=== PATIENT | male | born 1970 | race Caucasian/White ===

== ENCOUNTER 2019-03-14 07:41 | Day surgery (SDC) | payer BC ==
--- NOTE | 2019-03-07 14:38 | EKG ---
Test Date: 2019-03-07 Test Time: 14:33:07 Reversal Print Inspector: JOE MEASUREMENT RESULTS: Intervals: Rate: 57 NC: 138 QRSD: 86 QT: 408 QTc: 397 [place]: P: 58 NC: 138 QRS: -25 T: 47 INTERPRETIVE STATEMENTS: Sinus bradycardia Otherwise normal ECG Compared to ECG 01/02/2016 08:21:57 Sinus rhythm no longer present Electronically Signed On 03-07-19 14:38:12 [employer] by Indra Lieberman
[2019-03-07 15:09] LABS: Absolute Lymphocytes (CBC) 1.3 K/uL (0.7-4.9); Lymphocytes % 27.9 % (15.3-44.8); MPV 8.5 fL (7.6-11.3); RBC Red Blood Cell Count 4.83 M/uL (4.33-5.43)
[2019-03-07 15:13] LABS: Protime INR 1.05
[2019-03-07 15:30] LABS: BUN Blood Urea Nitrogen 12 mg/dL (7-18); Bicarbonate 32 mmol/L (21-32); Glucose Level 95 mg/dL (74-106); Potassium 3.8 mmol/L (3.5-5.1); Sodium Level 142 mmol/L (136-145)
--- OUTSIDE RECORDS SUMMARY | 2019-03-14 07:43 | XMS REPORT ---
:1970 Author Organization eClinicalWorks Care Team Providers Name Role Phone Tyshawn Gerber Provider Role Unavailable Allergies, Adverse Reactions, Alerts Substance Reaction Event Type N.K.D.A. 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 Problem Overweight (BMI 25.0-29.9) E66.3 Active Problem Right knee injury S89.91XA Active Problem Benign essential HTN I10 Active Problem Palpitation R00.2 Active Medications Medication Code Code Instructions Start End Status Dosage System Date Date Lisinopril [facility] 81528721350 10 MG Orally Active 1 tablet Once a day Nasonex ND 31146884351 50 MCG/ACT Active 2 sprays in Nasally Once a each nostril day Triamcinolone ND 26209474986 0.1 % June 29, Active 1 application Acetonide Externally 2019 to affected Twice a day area Claritin ND 12115845181 10 MG Orally Active 1 tablet Once a day Results No Known Results Summary Purpose eClinicalWorks Submission
--- OUTSIDE RECORDS SUMMARY | 2019-03-14 07:44 | XMS REPORT ---
:1970 Author Organization [employer] Care Team Providers Name Role Phone Tyshawn Gerber Provider Role Unavailable Allergies, Adverse Reactions, Alerts Substance Reaction Event Type N.K.D.A. 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 Problem Overweight (BMI 25.0-29.9) E66.3 Active Problem Right knee injury S89.91XA Active Problem Benign essential HTN I10 Active Problem Palpitation R00.2 Active Medications Medication Code Code Instructions Start End Status Dosage System Date Date Triamcinolone [facility] 58291169269 0.1 % June 29, Active 1 application Acetonide Externally 2019 to affected Twice a day area Lisinopril ND 57683757968 10 MG Orally Active 1 tablet Once a day Nasonex ND 37139867635 50 MCG/ACT Active 2 sprays in Nasally Once a each nostril day Claritin [facility] 74725072858 10 MG Orally Active 1 tablet Once a day Results No Known Results Summary Purpose eClinicalWorks Submission
--- OUTSIDE RECORDS SUMMARY | 2019-03-14 07:44 | XMS REPORT ---
:1970 Author Organization [employer]Works Care Team Providers Name Role Phone Efrain Vera Provider Role Unavailable Allergies, Adverse Reactions, Alerts Substance Reaction Event Type N.K.D.A. 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 Problem Overweight (BMI 25.0-29.9) E66.3 Active Problem Right knee injury S89.91XA Active Problem Benign essential HTN I10 Active Problem Palpitation R00.2 Active Medications Medication Code Code Instructions Start End Status Dosage System Date Date Triamcinolone ND 90893341262 0.1 % June 29, Active 1 application Acetonide Externally 2019 to affected Twice a day area Claritin [facility] 38338579817 10 MG Orally Active 1 tablet Once a day Lisinopril ND 55665739770 10 MG Orally Active 1 tablet Once a day Nasonex ND 05772700877 50 MCG/ACT Active 2 sprays in Nasally Once a each nostril day Results No Known Results Summary Purpose eClinicalWorks Submission
--- OUTSIDE RECORDS SUMMARY | 2019-03-14 07:44 | XMS REPORT ---
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
--- OUTSIDE RECORDS SUMMARY | 2019-03-14 07:44 | XMS REPORT ---
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 Problem Overweight (BMI 25.0-29.9) E66.3 Active Problem Right knee injury S89.91XA Active Problem Benign essential HTN I10 Active Problem Palpitation R00.2 Active Medications Medication Code Code Instructions Start End Status Dosage System Date Date Claritin [facility] [place] 41343303772 10 MG Orally Active 1 tablet Once a day Triamcinolone ND 73065023464 0.1 % June 29, Active 1 application Acetonide Externally 2019 to affected Twice a day area Nasonex ND 83434673192 50 MCG/ACT Active 2 sprays in Nasally Once a each nostril day Lisinopril ND 94777046316 10 MG Orally Active 1 tablet Once a day Results No Known Results Summary Purpose eClinicalWorks Submission
--- OUTSIDE RECORDS SUMMARY | 2019-03-14 07:44 | XMS REPORT ---
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
[2019-03-14] MEDS ORDERED: Ringers Lactate 1,000 ML IV ONE (08:01)
[2019-03-14] MEDS ORDERED: CEFAZOLIN/SWI 1gm 1 GM/10 ML SYR ONE (08:02)
[2019-03-14] MEDS ORDERED: MIDAZOLAM HCL 2 MG/2 ML INJ ONE ×2 (09:56→10:18)
[2019-03-14] MEDS ORDERED: FENTANYL CITR 100 MCG/2 ML ONE ×2 (10:18→12:29)
[2019-03-14] MEDS ORDERED: propofoL 200 MG/20 ML VIAL IV ONE (10:18)
[2019-03-14] MEDS ORDERED: LIDOCAINE 1% MPF 5 ML VIAL ONE (10:18)
[2019-03-14] MEDS ORDERED: BUPIVACA 0.5%/EPI 0.0005%/PF 30 ML VIAL ONE (11:06)
[2019-03-14] MEDS ORDERED: KETOROLAC 30 MG/ML INJ ONE (11:35)
[2019-03-14] MEDS ORDERED: ONDANSETRON 4 MG/2 ML VIAL ONE (12:11)
--- NOTE | 2019-03-14 12:59 | RAD REPORT ---
EXAM DESCRIPTION: RAD - Elbow Right 3 View - 03/14/2019 12:49 pm CLINICAL HISTORY: Elbow surgery FINDINGS: Eight intraoperative fluoroscopic spot images obtained Fluoroscopy time 0.5 minutes Postsurgical changes of a tendon repair Surgery performed by Dr. Gerber
--- NOTE | 2019-03-14 13:05 | P.BOP ---
Preoperative diagnosis: right partial distal biceps tear Postoperative diagnosis: same Primary procedure: right distal biceps tendon repair Transmitter Operator: NONE,NONE Estimated blood loss: 10 cc Specimen: none Findings: see dictation Anesthesia: General Complications: None Implants: Arthrex distal biceps button Fluids & blood products: per anesthesia Transferred to: Recovery Room Condition: Good
[2019-03-14 13:24] VITALS: O2SAT 100
--- NOTE | 2019-03-14 13:43 | RAD REPORT ---
EXAM DESCRIPTION: RAD - Elbow Right 2 View - 03/14/2019 1:34 pm CLINICAL HISTORY: post-op Right elbow pain COMPARISON: Elbow Right 3 View dated 03/14/2019; Elbow Right Wo Cont dated 11/16/2018 FINDINGS: Small clip is seen in the region of the radial tuberosity. Small osteophytes are present i nvolving the radial and olecranon. Mild soft tissue swelling is evident.
[2019-03-14] MEDS ORDERED: HYDROCODONE/APAP 5/325 MG TAB ONE (14:04)
[2019-03-14 14:48] VITALS: TEMP 96.6
[2019-03-14 14:51] VITALS: BP 126/76
--- NOTE | 2019-03-15 08:16 | OP ---
Date of Procedure: 03/14/2019 Surgeon: Tyshawn Gerber MD Preoperative Diagnosis: Right partial distal biceps tear. Postoperative Diagnosis: Right partial distal biceps tear. Procedure Performed: Right elbow distal biceps repair. Anesthesia: General LMA. Fluids: Per Anesthesia record. Estimated Blood Loss: 10 mL. Implants: Arthrex distal biceps tendon button. Complications: None. Indication For Procedure: Dameon is a 49-year-old male who presented to my clinic yesterday with an injury to his right elbow. He injured his right elbow and had some tenderness of his distal biceps tendon and MRI demonstrated a near complete distal biceps tear of over 70%. He had a trial of nonoperative treatment and therapy, but the patient failed and reported continued pain and difficulty with ADLs. I discussed with the patient at length risks and benefits associated with operative and nonoperative treatment, he expressed understanding and elected to proceed with the operative treatment. Description Of Procedure: After informed consent was obtained, the patient was identified in the preop holding. The right upper extremity was marked. The patient was then taken back to operating room, transferred to the operating table in the supine fashion, placed under general LMA anesthesia. The right upper extremity was then prepped and draped in usual sterile fashion. A time- out was initiated and correct patient and procedure were confirmed and identified. The patient had received his preoperative prophylactic antibiotics. Approximately, an 8 cm longitudinal incision was made over the proximal forearm in line with the bicipital tuberosity as well as proximal radius. Dissection was taken down through the brachioradialis and pronator interval interval. The brachial cutaneous nerves were protected at all times when dissection was taken down to the distal biceps tendon insertion. Any crossing veins were tied off using silk ties. The distal biceps tendon was noted to be abnormal, hypertrophic and partially torn insertion of the bicipital tuberosity. The remainder of the tendon was released off the bicipital tuberosity using Metzenbaum. The unhealthy tissue of distal biceps tendon was then debrided to healthy tendon stump. Distal 2.5 cm of the tendon stump was then whipstitched using a FiberLoop. A distal centimeter segment was marked with a marking pen for docking on the tendon. Next, attention was then taken to the proximal radius. The bicipital tuberosity was identified and the forearm was held in hyper-supination to ensure protection of the PIN. A guide pin was then placed centered in the bicipital tuberosity in a bicortical fashion. Fluoroscopy was then used to ensure proper placement of the pin. The biceps tendon was measured and it fit within a 6 mm tunnel. A 6 mm reamer was then used unicortical. The proximal radius was then reamed with a 6 mm reamer to create a bone tunnel. The sutures were fed through the distal biceps button and the biceps button was passed through the far cortex and the biceps tendon was then anchored and then docked into the tunnel and it went below the marking. There was noted a proper docking of the tendon. It was then passed through the tendon using a free needle and the sutures were tied. After passage of the tendon, the arm was able to come out into full extension with minimal tension. The wound was then irrigated thoroughly with normal saline. Subcutaneous tissue was approximated using a 2-0 Vicryl. Skin was approximated using a 2-0 Monocryl. Steri-Strips and sterile dressings were applied. The patient was placed in a posterior elbow splint at 90 degrees. He was awakened and transferred to PACU condition. Postoperative Plan: He will remain nonweightbearing on the right upper extremity. He was able to move his right hand and thumb demonstrating that the PIN was intact and appropriate after waking up. He will follow up in clinic in 1 week for wound check and placement of a hinged elbow brace. ALEJANDRA/MODL Voice ID: [id number] Report ID: [id number] JUAN
== END 2019-03-14 14:45 | disposition home or self-care (01) ==
LOC: OR 07:41
PROVIDERS: ATTEND Orthopaedic Surgery Sports Medicine
PROC: 0LQ30ZZ Repair Right Upper Arm Tendon, Open Approach (ICD-10-PCS; principal; 2019-03-14 09:30)
DX: S46.211A Strain of muscle, fascia and tendon of other parts of biceps, right arm, initial encounter (principal); I10 Essential (primary) hypertension; E78.5 Hyperlipidemia, unspecified; Z82.49 Family history of ischemic heart disease and other diseases of the circulatory system
CPT/HCPCS: 93005; 85025; 80048; 36415; 85610; 85730; 73080; 73070; 24341; J2704; J2250 ×2; J3010 ×2; J0690; J7120; J2405